=== PATIENT | female | born 1970 | race American Indian/Alaskan Native ===

== ENCOUNTER 2017-02-03 18:20 | Emergency (ER) | payer OTHER ==
[2017-02-03 18:49] VITALS: BP 155/100; PULSE 77; TEMP 98.2; BMI 32.9
--- NOTE | 2017-02-03 18:55 | ED PDOC ---
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 Patient stated she accidentally hit toe against a dresser. Denies other complains. Time/Duration: Prior to Arrival Quality: Aching Context: Home Past Medical History - Provider Review Nursing Documentation Reviewed: Yes - Cardiac Hx Hypertension: Yes - Pulmonary Hx Asthma: Yes - Neurological Hx Neurological Disorder: No - HEENT Hx HEENT Disorder: No - Renal Hx Renal Disorder: No - Endocrine/Metabolic Hx Diabetes Mellitus Type 2: Yes Hx Hyperthyroidism: Yes - Hematological/Oncological Hx Blood Disorders: No - Integumentary Hx Dermatological Disorder: No - Musculoskeletal/Rheumatological Hx Musculoskeletal Disorders: No - Gastrointestinal Hx Gastrointestinal Disorders: No - Genitourinary/Gynecological Hx Genitourinary Disorders: No - Psychiatric Hx Psychophysiologic Disorder: No Hx Substance Use: No - Surgical History Hx Hysterectomy: Yes Other/Comment: hernia - Anesthesia Hx Anesthesia: Yes Hx Anesthesia Reactions: No Family/Social History - Physician Review Nursing Documentation Reviewed: Yes Family/Social History: Other (non-contributory) Smoking Status: Unknown If Ever Smoked Hx Alcohol Use: No Hx Substance Use: No Allergies/Home Meds Allergies/Adverse Reactions: Allergies morphine Allergy (Verified 02/03/17 18:31) ANGIOEDEMA penbutolol sulfate [From Levatol] Allergy (Verified 02/03/17 18:31) RASH Penicillins Allergy (Verified 02/03/17 18:31) RASH Review of Systems - Review of Systems Constitutional: Normal. absent: Fatigue, Weight Change, Fevers, Night Sweats Eyes: Normal ENT: Normal Respiratory: Normal. absent: SOB, Cough Cardiovascular: Normal. absent: Chest Pain, Palpitations Gastrointestinal: Normal. absent: Abdominal Pain, Nausea, Vomiting Genitourinary Female: Normal Musculoskeletal: Other (Left big toe pain) Skin: Normal Neurological: Normal Endocrine: Normal Hemo/Lymphatic: Normal Psychiatric: Normal Physical Exam Vital Signs Temp Pulse Resp BP Pulse Ox 02/03/17 18:34 98.2 F 77 16 155/100 H 100 Temperature: Afebrile Blood Pressure: Normal Pulse: Regular Respiratory Rate: Normal Appearance: Positive for: Well-Appearing, Non-Toxic, Comfortable Pain Distress: None Mental Status: Positive for: Alert and Oriented X 3 - Systems Exam Head: Present: Atraumatic, Normocephalic Pupils: Present: PERRL Extroacular Muscles: Present: EOMI Conjunctiva: Present: Normal Mouth: Present: Moist Mucous Membranes Neck: Present: Normal Range of Motion Upper Extremity: Present: Normal Inspection, Normal ROM, NORMAL PULSES Lower Extremity: Present: Normal Inspection, NORMAL PULSES, Normal ROM, Tenderness (Mild tenderness over distal part of left big toe.), Neurovascularly Intact, Capillary Refill < 2 s. No: Edema, CALF TENDERNESS, Swelling, Erythema , Deformity, Temperature Abnormalties Neurological: Present: GCS=15, CN II-XII Intact, Speech Normal, Motor Func Grossly Intact, Normal Sensory Function, Normal Cerebellar Funct, Gait Normal, Memory Normal Skin: Present: Warm, Dry, Normal Color. No: Rashes Psychiatric: Present: Alert, Oriented x 3, Normal Insight, Normal Concentration Medical Decision Making ED Course and Treatment: 02/03/17 18:52 Patient refused pain medication as this time. Re-evaluation. Patient feels better. Discussed results and plan with patient who expresses understanding. All questions answered and there is agreement with the plan to discharge home with instructions. Patient stable for discharge. Return if symptoms persist or worsen. Re-evaluation Time: 19:33 Reassessment Condition: Re-examined, Improved - RAD Interpretation Narrative RAD Interpretations (Text): 02/03/17 19:33 Toe x-rays: No Fx Radiology Orders: 02/03/17 18:52 FOOT LEFT GREAT TOE ROUTINE [RAD] Stat Disposition/Present on Arrival - Present on Arrival Any Indicators Present on Arrival: No History of DVT/PE: No History of Uncontrolled Diabetes: No Urinary Catheter: No History of Decub. Ulcer: No History Surgical Site Infection Following: None - Disposition Have Diagnosis and Disposition been Completed?: Yes Diagnosis: Toe pain, left Disposition: HOME/ ROUTINE Disposition Time: 19:33 Patient Plan: Discharge Patient Problems: Current Active Problems Problem Status Onset Toe pain, left Acute Condition: GOOD Discharge Instructions (ExitCare): Foot Contusion (ED) Additional Instructions: Call private doctor for follow up visit in 1-2 days. Do warmth Epson Salt water 3-4 times day. Take Motrin for pain as needed with food. Return to emergency if symptoms worsen. Prescriptions: Ibuprofen [Motrin] 600 mg PO Q8 PRN #20 tab PRN Reason: Pain, Severe (8-10) Referrals: Geno Newman MD [Family Provider] - Follow up with primary Forms: [employer] (Mongolian)
--- NOTE | 2017-02-03 19:25 | RAD ---
PROCEDURE: Radiographs of the left great toe. TECHNIQUE:: AP radiograph of the left foot, with oblique and lateral view of the left great toe. COMPARISON: None. FINDINGS: BONES: Normal. No fracture. JOINTS: Normal. SOFT TISSUES: Normal. OTHER FINDINGS: None. IMPRESSION: Normal left great toe radiographs.
[2017-02-03 19:53] VITALS: RESP 18; O2SAT 99
== END 2017-02-03 19:53 | disposition home or self-care (01) ==
LOC: ED 18:20
DX: M79.675 Pain in left toe(s) (principal)

== ENCOUNTER 2018-06-02 21:07 | Emergency (ER) | payer OTHER ==
[2018-06-02 21:08] VITALS: BMI 32.9
[2018-06-02] MEDS ORDERED: Naproxen 550 mg Tab PO STA (22:04)
[2018-06-02] MEDS ORDERED: Lidocaine 5% Patch TD STA (22:04)
--- NOTE | 2018-06-02 22:17 | ED PDOC ---
Arrival/HPI <Michelet Salgado - Last Filed: 06/02/18 22:24> - General Historian: Patient - History of Present Illness Narrative History of Present Illness (Text): 06/02/18 22:14 47-year-old female who states that she fell on ice 3 days ago. States that she went to [facility] to be evaluated immediately after the fall, at that time she was complaining of pain to her left knee and x-rays were done, which were normal. However presents today, complaining of pain to the left shoulder, lower back, left hip and still left knee pain since the fall. Otherwise she reports no headache, LOC, neck pain, chest pain, but pain, abdominal pain, or any other extremity injury or pain. States that she has been taking tylenol for pain with no improvement. <Tiffanie Dyer PA-C - Last Filed: 06/03/18 00:43> - General Chief Complaint: Upper Extremity Problem/Injury Time Seen by Provider: 06/02/18 21:14 Past Medical History - Infectious Disease Hx of Infectious Diseases: None - Cardiac Hx Cardiac Disorders: Yes Hx Hypertension: Yes - Pulmonary Hx Respiratory Disorders: Yes Hx Asthma: Yes - Neurological Hx Neurological Disorder: No - HEENT Hx HEENT Disorder: No - Renal Hx Renal Disorder: No - Endocrine/Metabolic Hx Endocrine Disorders: Yes Hx Diabetes Mellitus Type 1: Yes Hx Diabetes Mellitus Type 2: Yes Hx Hyperthyroidism: Yes - Hematological/Oncological Hx Blood Disorders: No - Integumentary Hx Dermatological Disorder: No - Musculoskeletal/Rheumatological Hx Musculoskeletal Disorders: Yes Hx Arthritis: Yes - Gastrointestinal Hx Gastrointestinal Disorders: Yes Hx Gastritis: Yes Hx Irritable Bowel: Yes - Genitourinary/Gynecological Hx Genitourinary Disorders: No - Psychiatric Hx Psychophysiologic Disorder: No Hx Substance Use: No - Surgical History Hx Section: Yes Hx Hysterectomy: Yes Hx Tubal Ligation: Yes Other/Comment: hernia - Anesthesia Hx Anesthesia: Yes Hx Anesthesia Reactions: No Hx Malignant Hyperthermia: No <Tiffanie Dyer PA-C - Last Filed: 06/03/18 00:43> Family/Social History Family/Social History: No Known Family HX Smoking Status: Never Smoked Hx Alcohol Use: No Hx Substance Use: No <Tiffanie Dyer PA-C - Last Filed: 06/03/18 00:43> Allergies/Home Meds <Michelet Salgado - Last Filed: 06/02/18 22:24> <Tiffanie Dyer PA-C - Last Filed: 06/03/18 00:43> Allergies/Adverse Reactions: Allergies morphine Allergy (Verified 02/01/18 09:53) ANGIOEDEMA Penicillins Allergy (Verified 02/01/18 09:53) RASH LEVAQUIN Allergy (Uncoded 02/01/18 09:53) RASH Home Medications: Home Meds Medication Instructions Recorded Confirmed Bisoprolol/HCTZ [Ziac 10-6.25 mg] 1 tab PO DAILY 02/01/18 02/01/18 Clopidogrel [Plavix] 75 mg PO DAILY 02/01/18 02/01/18 Ergocalciferol (Vitamin D2) 2,000 iu PO DAILY 02/01/18 02/01/18 [Vitamin D2] Fluticasone Propionate [Flovent 50 mcg IH DAILY 02/01/18 02/01/18 Diskus] Insulin Detemir [Levemir] 100 unit SC BID 02/01/18 02/01/18 Insulin Human NPH/Reg [humulin 1 units SC BID 02/01/18 02/01/18 70/30 70 U/Ml-30 U/Ml 10 Ml] Lisinopril/Hydrochlorothiazide 1 each PO DAILY 02/01/18 02/01/18 [Lisinopril-Hctz 20-25 mg Tab] Losartan/Hydrochlorothiazide 1 each PO DAILY 02/01/18 02/01/18 [Losartan-Hctz 50-12.5 mg Tab] Pravastatin Sodium [Pravachol] 20 mg PO DAILY 02/01/18 02/01/18 RX: Meloxicam 15 mg PO DAILY 02/01/18 02/01/18 RX: Metoprolol Succinate 50 mg PO DAILY 02/01/18 02/01/18 RX: Naproxen 500 mg PO DAILY 02/01/18 02/01/18 RX: Omeprazole 20 mg PO DAILY 02/01/18 02/01/18 RX: Propylthiouracil 50 mg PO DAILY 02/01/18 02/01/18 RX: Simvastatin 40 mg PO DAILY 02/01/18 02/01/18 Tramadol HCl [Ultram] 50 mg PO DAILY 02/01/18 02/01/18 busPIRone [Buspar] 0 mg DAILY 02/01/18 02/01/18 Review of Systems - Review of Systems Constitutional: absent: Fatigue, Fevers Respiratory: absent: SOB, Cough Cardiovascular: absent: Chest Pain, Palpitations Gastrointestinal: absent: Abdominal Pain, Nausea, Vomiting Musculoskeletal: Arthralgias, Back Pain. absent: Neck Pain, Myalgias Skin: absent: Rash, Pruritis, Skin Lesions Neurological: absent: Headache, Dizziness <Tiffanie Dyer PA-C - Last Filed: 06/03/18 00:43> Physical Exam - Physical Exam Narrative Physical Exam (Text): 06/02/18 22:15 GENERAL APPEARANCE: Patient is awake, alert, oriented x 3, in mild painful distress. SKIN: Warm, dry; (-) cyanosis. HEAD: (-) swelling and tenderness, with no palpable bony defect. EYES: (-) conjunctival pallor, (-) scleral icterus, (-) nystagmus. ENMT: Mucous membranes moist. (-) Reis's sign. Nose: (-) tenderness, (-) rhinorrhea. No oral trauma. Pharynx clear. Airway patent: (-) stridor. Full ROM of mandible without pain. NECK: (-) tenderness, (-) stiffness, (-) lymphadenopathy. CHEST AND RESPIRATORY: (-) chest wall tenderness. Lungs: (-) rales, (-) rhonchi, (-) wheezes; breath sounds equal bilaterally. HEART AND CARDIOVASCULAR: (-) irregularity; (-) murmur, (-) gallop. ABDOMEN AND GI: Soft; (-) tenderness. BACK: (+) mild midline tenderness to the L spine. EXTREMITIES: (-) deformity, (+) tenderness to the L shoulder, L hip, and L knee, (+) limitation of motion secondary to pain. Distal pulses 2+. NEURO AND PSYCH: GCS=15. Mental status as above. 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 EOMI. (-) facial asymmetry. Tongue and uvula midline. Strength 5/5 in all extremities. No gross sensory deficits. <Tiffanie Dyer PA-C - Last Filed: 06/03/18 00:43> Medical Decision Making - RAD Interpretation Radiology Orders: 06/02/18 22:04 HIP MIN 2V W/ PELVIS LT [RAD] Stat KNEE LEFT 2 VIEWS (AP & LAT) [RAD] Stat LS SPINE WITH OBL > 18 YRS OLD [RAD] Stat SHOULDER LEFT [RAD] Stat - Medication Orders Current Medication Orders: Discontinued Medications Lidocaine (Lidoderm) 1 ea TD STAT STA Stop: 06/02/18 22:05 Naproxen (Anaprox Ds) 550 mg PO ONCE STA Stop: 06/02/18 22:05 <Michelet Salgado - Last Filed: 06/02/18 22:24> ED Course and Treatment: 06/02/18 22:17 Plan : - XR L shoulder - XR L spine - XR L hip - XR L knee - naprosyn po - lidoderm patch XR L shoulder : no fracture or dislocation. XR L spine : no fracture or dislocation. XR L hip : no fracture or dislocation. XR L knee : no fracture or dislocation. XR results d/w the patient. Advised to ice areas of pain. Diagnosis of contusion d/w the patient. Advised to follow up with primary care physician in 1-2 days without fail. Advised to take medication as prescribed. Return to the emergency room at any time for any new or worsening symptoms. Patient states she fully agrees with and understands discharge instructions. States that she agrees with the plan and disposition. Verbalized and repeated discharge instructions and plan. I have given the patient opportunity to ask any additional questions. - RAD Interpretation Radiology Orders: 06/02/18 22:04 HIP MIN 2V W/ PELVIS LT [RAD] Stat KNEE LEFT 2 VIEWS (AP & LAT) [RAD] Stat LS SPINE WITH OBL > 18 YRS OLD [RAD] Stat SHOULDER LEFT [RAD] Stat - Medication Orders Current Medication Orders: Discontinued Medications Lidocaine (Lidoderm) 1 ea TD STAT STA Stop: 06/02/18 22:05 Naproxen (Anaprox Ds) 550 mg PO ONCE STA Stop: 06/02/18 22:05 <Tiffanie Dyer PA-C - Last Filed: 06/03/18 00:43> - PA / MANAGER OF SELECTION AND ASSESSMENT / Resident Statement HUGO has reviewed & agrees with the documentation as recorded. <Michelet Salgado - Last Filed: 06/02/18 22:24> - PA / MANAGER OF SELECTION AND ASSESSMENT / Resident Statement MD/DO has reviewed & agrees with the documentation as recorded. <Tiffanie Dyer PA-C - Last Filed: 06/03/18 00:43> Disposition/Present on Arrival <Michelet Salgado - Last Filed: 06/02/18 22:24> - Present on Arrival Any Indicators Present on Arrival: No History of DVT/PE: No History of Uncontrolled Diabetes: No Urinary Catheter: No History of Decub. Ulcer: No History Surgical Site Infection Following: None - Disposition Have Diagnosis and Disposition been Completed?: Yes Disposition Time: 23:30 Patient Plan: Discharge <Tiffanie Dyer PA-C - Last Filed: 06/03/18 00:43> - Disposition Diagnosis: Low back pain, Left shoulder pain, Left hip pain, Left knee pain Disposition: HOME/ ROUTINE Condition: STABLE Discharge Instructions (ExitCare): Low Back Pain (DC), Contusion (DC) Additional Instructions: Thank you for letting us take care of you today. You were treated for low back pain, left shoulder/hip/knee pain. The emergency medical care you received today was directed at your acute symptoms. If you were prescribed any medication, please fill it and take as directed. It may take several days for your symptoms to resolve. Return to the Emergency Department if your symptoms worsen, do not improve, or if you have any other problems. Please contact your doctor in 2 days for re-evaluation and follow up / or call one of the physicians/clinics you have been referred to that are listed on the Patient Visit Information form that is included in your discharge packet. Bring any paperwork you were given at discharge with you along with any medications you are taking to your follow up visit. Our treatment cannot replace ongoing medical care by a primary care provider (PCP) outside of the emergency department. Thank you for allowing the [facility] team to be part of your care today. If you had an X-Ray : A Radiologist will review the ED reading if any change in treatment is needed we will contact you. Prescriptions: Cyclobenzaprine [Cyclobenzaprine HCl] 10 mg PO TID PRN #15 tab PRN Reason: Muscle Spasm Meloxicam [Mobic] 15 mg PO DAILY #20 tab Referrals: Geno Newman MD [Primary Care Provider] - Follow up with primary Jw Judge III, MD [Medical Doctor] - Follow up with primary Forms: [employer] (Pashto), WORK NOTE
[2018-06-03 00:34] VITALS: BP 150/87; PULSE 77; RESP 20; TEMP 98.1
--- NOTE | 2018-06-03 12:37 | RAD ---
Date of service: 06/02/2018 PROCEDURE: Radiographs of the Lumbar Spine. HISTORY: pain COMPARISON: No prior. FINDINGS: BONES: Normal alignment. No listhesis. No fracture. DISC SPACES: Unremarkable. OTHER FINDINGS: Endplate degenerative changes associated with small marginal osteophyte lipping. IMPRESSION: No evidence of acute pathology. Mild disc and endplate degenerative changes.
--- NOTE | 2018-06-03 12:41 | RAD ---
Date of service: 06/02/2018 PROCEDURE: Radiographs of the Left Shoulder HISTORY: pain COMPARISON: No prior. FINDINGS: BONES: Normal. No fracture. JOINTS: Normal. Glenohumeral and acromioclavicular joints preserved. No osteoarthritis. SOFT TISSUES: Normal. OTHER FINDINGS: None. IMPRESSION: No evidence of acute fracture or dislocation.
--- NOTE | 2018-06-03 12:42 | RAD ---
Date of service: 06/02/2018 PROCEDURE: Left Knee Radiographs. HISTORY: Pain. COMPARISON: None. FINDINGS: BONES: Normal. No fracture. JOINTS: Moderate osteoarthritic changes JOINT EFFUSION: None. OTHER FINDINGS: None. IMPRESSION: No evidence of acute fracture or dislocation. Moderate osteoarthritic changes.
--- NOTE | 2018-06-03 18:00 | RAD ---
PROCEDURE: Left Hip X-ray Radiographs. HISTORY: pain COMPARISON: None. FINDINGS: BONES: Normal. No fracture. JOINTS: Normal. SOFT TISSUES: Normal. OTHER FINDINGS: None. IMPRESSION: No evidence of acute fracture or dislocation.
== END 2018-06-03 | disposition home or self-care (01) ==
LOC: ED 21:07
DX: M54.5 Low back pain (principal); M25.512 Pain in left shoulder; M25.552 Pain in left hip; M25.562 Pain in left knee; E11.9 Type 2 diabetes mellitus without complications; I10 Essential (primary) hypertension; E05.90 Thyrotoxicosis, unspecified without thyrotoxic crisis or storm

== ENCOUNTER 2018-09-18 14:37 | Emergency (ER) | payer MEDICAID, OTHER ==
[2018-09-18 15:22] VITALS: BP 150/80; PULSE 85; RESP 18; TEMP 98.6; O2SAT 98; BMI 37.4
--- NOTE | 2018-09-18 15:34 | ED PDOC ---
Arrival/HPI - General Chief Complaint: Abnormal Skin Integrity Time Seen by Provider: 09/18/18 14:39 Historian: Patient - History of Present Illness Narrative History of Present Illness (Text): 48 y/o female with PMH of HTN, DM, Asthma presents to the ED c/o skin lesion to left hand 2nd digit x 4 months. She states she often tries to pick at and pop the lesion but it has persisted. Pt states it became more red and tender over t he last week. 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 Denies trauma/injury, lesions elsewhere, fever, chills, numbness, weakness, paresthesias, nausea, vomiting, dizziness, or any other associated symptoms. Past Medical History - Provider Review Nursing Documentation Reviewed: Yes Primary Care Provider: Geno Newman I - Infectious Disease Hx of Infectious Diseases: None - Cardiac Hx Cardiac Disorders: Yes Hx Hypertension: Yes - Pulmonary Hx Respiratory Disorders: Yes Hx Asthma: Yes - Neurological Hx Neurological Disorder: No - HEENT Hx HEENT Disorder: No - Renal Hx Renal Disorder: No - Endocrine/Metabolic Hx Endocrine Disorders: Yes Hx Diabetes Mellitus Type 1: Yes Hx Diabetes Mellitus Type 2: Yes Hx Hyperthyroidism: Yes - Hematological/Oncological Hx Blood Disorders: No - Integumentary Hx Dermatological Disorder: No - Musculoskeletal/Rheumatological Hx Musculoskeletal Disorders: Yes Hx Arthritis: Yes - Gastrointestinal Hx Gastrointestinal Disorders: Yes Hx Gastritis: Yes Hx Irritable Bowel: Yes - Genitourinary/Gynecological Hx Genitourinary Disorders: No - Psychiatric Hx Psychophysiologic Disorder: No Hx Substance Use: No - Surgical History Hx Section: Yes Hx Hysterectomy: Yes Hx Tubal Ligation: Yes Other/Comment: hernia - Anesthesia Hx Anesthesia: Yes Hx Anesthesia Reactions: No Hx Malignant Hyperthermia: No Family/Social History - Physician Review Nursing Documentation Reviewed: Yes Family/Social History: No Known Family HX Smoking Status: Never Smoked Hx Alcohol Use: No Hx Substance Use: No Allergies/Home Meds Allergies/Adverse Reactions: Allergies morphine Allergy (Verified 09/18/18 15:03) ANGIOEDEMA Penicillins Allergy (Verified 09/18/18 15:03) RASH LEVAQUIN Allergy (Uncoded 09/18/18 15:03) RASH Home Medications: Home Meds Medication Instructions Recorded Confirmed Bisoprolol/HCTZ [Ziac 10-6.25 mg] 1 tab PO DAILY 02/01/18 02/01/18 Clopidogrel [Plavix] 75 mg PO DAILY 02/01/18 02/01/18 Ergocalciferol (Vitamin D2) 2,000 iu PO DAILY 02/01/18 02/01/18 [Vitamin D2] Fluticasone Propionate [Flovent 50 mcg IH DAILY 02/01/18 02/01/18 Diskus] Insulin Detemir [Levemir] 100 unit SC BID 02/01/18 02/01/18 Insulin Human NPH/Reg [humulin 1 units SC BID 02/01/18 02/01/18 70/30 70 U/Ml-30 U/Ml 10 Ml] Lisinopril/Hydrochlorothiazide 1 each PO DAILY 02/01/18 02/01/18 [Lisinopril-Hctz 20-25 mg Tab] Losartan/Hydrochlorothiazide 1 each PO DAILY 02/01/18 02/01/18 [Losartan-Hctz 50-12.5 mg Tab] Meloxicam 15 mg PO DAILY 02/01/18 02/01/18 Metoprolol Succinate 50 mg PO DAILY 02/01/18 02/01/18 Naproxen 500 mg PO DAILY 02/01/18 02/01/18 Omeprazole 20 mg PO DAILY 02/01/18 02/01/18 Pravastatin Sodium [Pravachol] 20 mg PO DAILY 02/01/18 02/01/18 Propylthiouracil 50 mg PO DAILY 02/01/18 02/01/18 Simvastatin 40 mg PO DAILY 02/01/18 02/01/18 Tramadol HCl [Ultram] 50 mg PO DAILY 02/01/18 02/01/18 busPIRone [Buspar] 0 mg DAILY 02/01/18 02/01/18 Physical Exam Vital Signs Reviewed: Yes Vital Signs Temp Pulse Resp BP Pulse Ox 09/18/18 15:11 98.6 F 85 18 150/80 98 Temperature: Afebrile Blood Pressure: Normal Pulse: Regular Respiratory Rate: Normal Appearance: Positive for: Well-Appearing, Non-Toxic, Comfortable Pain Distress: None Mental Status: Positive for: Alert and Oriented X 3 - Systems Exam Head: Present: Atraumatic, Normocephalic Pupils: Present: PERRL Extroacular Muscles: Present: EOMI Conjunctiva: Present: Normal Mouth: Present: Moist Mucous Membranes Neck: Present: Normal Range of Motion Respiratory/Chest: No: Respiratory Distress Back: Present: Normal Inspection Upper Extremity: Present: Normal ROM, NORMAL PULSES, Tenderness (over lesion), Erythema (circumferentially around lesion, mild), Neurovascularly Intact, Capillary Refill < 2s, Other (verruca to ventral distal phalanx of left hand 2nd digit). No: Temperature Abnormalties, Deformity Lower Extremity: Present: Normal ROM Neurological: Present: GCS=15, CN II-XII Intact, Speech Normal, Motor Func Grossly Intact, Normal Sensory Function, Gait Normal Skin: Present: Warm, Dry, Other (0.5cm diameter verruca to ventral distal phalanx of left hand 2nd digit with surrounding erythema; no fluctuance or drainage ). No: Induration, Hot, Laceration, Abscess Psychiatric: Present: Alert, Oriented x 3, Normal Insight, Normal Concentration, Normal Affect, Normal Mood Medical Decision Making ED Course and Treatment: Advised dermatological and PMD followup. Diagnostic testing results and plan of care discussed with patient. Strict instructions given regarding prescription use, importance of followup, and signs/symptoms to return to ER including worsening redness, drainage, fever, chills, numbness, paresthesias, or any other new/worsening symptoms. Pt verbalized understanding of discussion. Patient is A&Ox3, ambulating with steady gait, with vital signs stable for discharge. - RAD Interpretation Radiology Orders: 09/18/18 15:10 HAND LEFT 2ND DIGIT (FINGER) [RAD] Stat Disposition/Present on Arrival - Present on Arrival Any Indicators Present on Arrival: No History of DVT/PE: No History of Uncontrolled Diabetes: No Urinary Catheter: No History of Decub. Ulcer: No History Surgical Site Infection Following: None - Disposition Have Diagnosis and Disposition been Completed?: Yes Diagnosis: Verruca, Cellulitis Disposition: HOME/ ROUTINE Disposition Time: 15:00 Patient Plan: Discharge Condition: STABLE Discharge Instructions (ExitCare): Warts on the Skin, Cellulitis (ED) Additional Instructions: Clindamycin 3 times daily for 7 days Over the counter wart treatment as directed Followup with primary doctor within 2 days Followup with dermatology within 2 days Return to ER with any new/worsening symptoms Prescriptions: Clindamycin [Cleocin] 300 mg PO Q8 7 Days #21 cap Referrals: Kenyetta Munoz MD [Staff Provider] - Follow up with primary Geno Newman MD [Family Provider] - Follow up with primary Forms: [employer] (Thai), WORK NOTE
== END 2018-09-18 17:39 | disposition home or self-care (01) ==
LOC: ED 14:37
DX: L03.012 Cellulitis of left finger (principal); B07.9 Viral wart, unspecified